=== PATIENT | female | born 1965 | race Two or more races ===

== ENCOUNTER 2021-08-12 21:01 | Emergency (ER) | payer MEDICAID ==
[~2021-08-12] VITALS: Ht 157.5 cm; Wt 73.5 kg
--- NOTE | 2021-08-12 21:25 | NUR ---
BIBS C/O MID BACK PAIN X 2WEEKS. PLACED COMFORTABLY IN BED. VITALS CHECKED.
--- NOTE | 2021-08-12 21:30 | NUR ---
URINE SPECIMEN SENT TO LAB
--- NOTE | 2021-08-12 21:45 | NUR ---
EKG DONE AT BEDSIDE
--- NOTE | 2021-08-12 21:51 | NUR ---
XRAY DONE AT BEDSIDE
[2021-08-12 22:27] LABS: BILIRUBIN,URINE NEGATIVE (NEGATIVE); COLOR,URINE YELLOW (YELLOW); LEUKOCYTE ESTERASE ,URINE SMALL (NEGATIVE); NITRITE, URINE NEGATIVE (NEGATIVE); PH,URINE 5.5 (5.0-8.0); PROTEIN,URINE TRACE mg/dl (NEGATIVE); UGLUCOSE NEGATIVE (NEGATIVE); UROBILINOGEN,URINE 0.2 EU/dL (0.2)
[2021-08-12 22:28] LABS: BASOPHILS % (AUTO) 0.3 % (0.0-2.0); EOSINOPHILS % (AUTO) 1.4 % (0.0-6.0); HEMATOCRIT 39 % (33-45); HEMOGLOBIN 12.8 g/dL (11.5-14.8); LYMPHOCYTES # (AUTO) 4.2 K/uL (0.8-4.8); LYMPHOCYTES % (AUTO) 48.8 % (20.0-44.0); MEAN CORPUSCULAR HGB CONC 33 g/dl (31.0-36.0); MEAN CORPUSCULAR VOLUME 79 fL (82-100); MONOCYTES # (AUTO) 0.8 K/uL (0.1-1.30); MONOCYTES % (AUTO) 8.8 % (2.0-12.0); NEUTROPHILS # (AUTO) 3.5 K/uL (1.8-8.9); NEUTROPHILS % (AUTO) 40.7 % (43.0-81.0); PLATELET COUNT (AUTO) 203 K/uL (150-450); RED BLOOD CELL COUNT(AUTO) 4.97 MIL/uL (4.0-5.2); WHITE BLOOD COUNT (AUTO) 8.6 K/uL (4.3-11.0)
[2021-08-12 22:37] LABS: CALCIUM, SERUM 9.2 mg/dL (8.5-10.1); CARBON DIOXIDE 28 mmol/L (21-32); CHLORIDE 107 mmol/L (98-107); CREATININE 0.8 mg/dL (0.6-1.3); GLUCOSE 100 mg/dL (74-106); POTASSIUM 3.8 mmol/L (3.5-5.1); SODIUM SERUM 143 mmol/L (136-145); UREA NITROGEN, BLOOD 21 mg/dL (7-18)
[2021-08-12 22:45] LABS: BACTERIA,URINE Moderate /HPF (None Seen)
[2021-08-12] MEDS ORDERED: IV NS 0.9% 1,000 ML IV ONE (23:00)
--- NOTE | 2021-08-12 23:20 | NUR ---
IV CANNULA G20 INSERTED ON RIGHT AC. IVF STARTED.
--- NOTE | 2021-08-12 23:30 | NUR ---
COVID SWAB DONE AND SENT TO LAB
--- NOTE | 2021-08-13 00:14 | NUR ---
DRILLING INSPECTOR AT BEDSIDE FOR 2ND TROPONIN
[2021-08-13] MEDS ORDERED: CEPH500T PO (01:24)
[2021-08-13] MEDS ORDERED: NAPR-1164 PO (01:24)
--- NOTE | 2021-08-13 01:34 | NUR ---
IV CANNULA REMOVED.
--- NOTE | 2021-08-13 01:34 | NUR ---
Patient discharged to home in stable condition. Written and verbal after care instructions given. Patient verbalizes understanding of instruction.
[2021-08-13 01:36] VITALS: BP 133/79
== END 2021-08-13 01:37 | disposition home or self-care (01) ==
LOC: ER 21:17
DX: N39.0 Urinary tract infection, site not specified (principal); N28.9 Disorder of kidney and ureter, unspecified; R05.9 Cough, unspecified; Z20.822 Contact with and (suspected) exposure to COVID-19; R07.89 Other chest pain
CPT/HCPCS: 36415; 71045; 80048; 81001; 83880; 84443; 84484 ×2; 85025; 87086; 87426; 93005; 99285; C9803; J7030